=== PATIENT | male | born 1970 | race Caucasian/White ===

== ENCOUNTER → 2022-05-28 | Day surgery (SDC) | payer BC ==
[~2022-05-28] MED LIST: ACETAMINOPHEN 500 MG TAB ONE; CEFTRIAXONE 1000 MG/VIAL ONE; CELECOXIB 100 MG CAPSULE ONE; CODEINE 30MG/APAP 300MG TAB PO PRN; FENTANYL CITR 100 MCG/2 ML ONE; LIDOCAINE 1% MPF 5 ML VIAL ONE; ONDANSETRON 4 MG/2 ML VIAL ONE; PHENAZOPYRIDINE 100MG TAB PO ONE; Ringers Lactate 1,000 ML IV ONE; SUCCINYLCHOLINE 20 MG/ML (10 ML) IV ONE; dexAMETHasone 10 MG/ML VIAL ONE; propofoL 200 MG/20 ML VIAL IV ONE
[2022-05-28 15:13] LABS: Absolute Lymphocytes (CBC) 0.9 K/uL (0.7-4.9); Lymphocytes % 15.1 % (15.3-44.8); MCV 88.6 fL (80-100); MPV 7.7 fL (7.6-11.3); RBC Red Blood Cell Count 4.63 M/uL (4.33-5.43)
[2022-05-28 15:24] LABS: Protime INR 0.98
[2022-05-28 15:31] LABS: Potassium 4.5 mmol/L (3.5-5.1)
[2022-05-28 15:32] LABS: SARS-CoV-2 Antigen Rapid Res Negative (Negative)
--- NOTE | 2022-05-28 16:10 | EKG ---
Test Date: 2022-05-28 Test Time: 14:53:32 Ruby Developer: YARA MEASUREMENT RESULTS: Intervals: Rate: 53 WV: 122 QRSD: 98 QT: 432 QTc: 405 [place]: P: 46 WV: 122 QRS: 35 T: 46 INTERPRETIVE STATEMENTS: Sinus bradycardia Otherwise normal ECG No previous ECG available for comparison Electronically Signed On 05-28-22 16:10:12 CDT by Neptali Brooks
[2022-05-28 16:58] VITALS: BP 125/87; TEMP 97.4; O2SAT 99
--- NOTE | 2022-05-28 17:31 | RAD REPORT ---
EXAM DESCRIPTION: RAD - Cystography - 05/28/2022 5:17 pm CLINICAL HISTORY: ICD N 20.0 FINDINGS: 7 fluoroscopic spot images obtained. Fluoroscopy time 0.0 none minutes Left ureter was cannulated and contrast administered. Subsequently an ureteral stent was placed. Examination was performed by Dr Sharpe
--- NOTE | 2022-05-28 23:17 | OP ---
Surgeon: SAI MOREAU Preoperative Diagnoses: 1.Obstructive pyelonephritis. 2.Left ureterolithiasis. 3.Left hydronephrosis. Postoperative Diagnoses: 1.Obstructive pyelonephritis. 2.Left ureterolithiasis. 3.Left hydronephrosis. Procedures: 1.Cystoscopy. 2.Left retrograde pyelography. 3.Left ureteral stent placement. Indication For Procedure: Mr. Nava was originally seen in the office several weeks ago with an obstructing 6.5 mm calculus observed on a CT scan from [facility]. The stone was proximal in location, and he had otherwise normal parameters. He was given an opportunity to pass the stone, how ever, within the last 2 days he developed fever to 100.6 associated with continued left-sided flank p ain. As a result, he was counseled about the potential for propagation of sepsis and recommended for ureteral stent placement. Procedure In Detail: The patient was consented in the preoperative holding area before being transfe rred to the operative suite where general anesthesia was induced. He was given ceftriaxone 1 g IV an timicrobial prophylaxis and Pneumoboots were provided for DVT prophylaxis. He was placed in the lith otomy position, padded and secured to the table appropriately. His genitalia were prepped using Hibi clens and he was draped in standard fashion. The case was begun using a 22-Ugandan rigid cystoscope t o traverse the urethra and into the bladder with ease. The bladder was surveyed in its entirety, and there were no mucosal lesions, foreign bodies, or stones noted throughout. The ureteral orifices we re orthotopic in location, and the left ureteral orifice was cannulated using the tip of a 5-Ugandan u reteral access catheter. A retrograde pyelogram was then performed. Left retrograde pyelography: Using a 70:30 mixture of Omnipaque and saline, contrast was injected. A 5-Ugandan ureteral access catheter did identify filling defect in the distal ureter just a couple of cm proximal to the UVJ. There was extensive ureteronephrosis along the entirety of the ureter from that point with some mild tortuosity extending into the renal pelvis where there was [id number] caliectasis and some pelviectasis noted. As a result, I passed the Sensor wire via the 5-Ugandan ure teral access catheter with ease into the collecting system where a coil was observed fluoroscopically in the upper pole. Over the Sensor wire, I was then able to cross a 6-Ugandan x 26 cm double-J stent with a coil observed fluoroscopically in the upper pole and one cystoscopically within the bladder. The patient's bladder was then drained of fluid and urine, and there was no significant purulence em anating from the stent. As a result, I discontinued the procedure and the patient was taken out of t he lithotomy position, awakened from general anesthesia, transferred to a stretcher, and then transfe rred to the recovery room in good condition. Complications: None. Discharge Disposition: He should follow up for definitive management of the stone via ureteroscopy a nd laser lithotripsy sometime within the next month preferably. He was also discharged with a 7 day prescription for ciprofloxacin for antimicrobial therapy. KIM/JUAN MIGUEL Voice ID: [id number] Report ID: [id number]
== END | disposition home or self-care (01) ==
LOC: OR 14:17
PROVIDERS: ATTEND Urology
PROC: BT1FYZZ Fluoroscopy of Left Kidney, Ureter and Bladder using Other Contrast (ICD-10-PCS; 2022-05-28)
PROC: 0T778DZ Dilation of Left Ureter with Intraluminal Device, Via Natural or Artificial Opening Endoscopic (ICD-10-PCS; principal; 2022-05-28 15:00)
DX: N11.1 Chronic obstructive pyelonephritis (principal); N13.2 Hydronephrosis with renal and ureteral calculous obstruction; Z79.899 Other long term (current) drug therapy; Z20.822 Contact with and (suspected) exposure to COVID-19; Z80.1 Family history of malignant neoplasm of trachea, bronchus and lung
CPT/HCPCS: 52332; 52005; 93005; 85025; 87086; 80048; 36415; 85610; 51600; 74430; 87811; J2704; J0330; J3010; J1100; J7120; J2405; 87088